=== PATIENT | male | born 1995 | race Caucasian/White ===

== ENCOUNTER 2016-05-29 11:19 | Emergency (ER) | payer SELFPAY ==
[~2016-05-29] VITALS: Ht 160 cm; Wt 49.9 kg
[2016-05-29 11:20] VITALS: BP 127/80; PULSE 80; RESP 20; TEMP 97.6; O2SAT 99
--- NOTE | 2016-05-29 11:20 | NUR ---
Arrived in custody of [facility] with compliant of anxiety this morning. States that he feels it is improving though he has had anxiety twice this morning. Patient to ER [id number] 1 to gown for evaluation. Side rails up. Assumed care of patient.
--- NOTE | 2016-05-29 11:22 | NUR ---
ER Dr. Parker at bedside examining patient.
[2016-05-29] MEDS ORDERED: ALPRAZolam 0.25 MG TABLET PO ONE (11:30)
--- NOTE | 2016-05-29 11:58 | NUR ---
Patient given written and verbal discharge instructions and verbalizes understanding. ER MD discussed with patient the results and treatment provided. Given copies of tests performed in ER. Patient in stable condition. ID arm band removed. No Rx given. Patient educated on pain management and to follow up with PMD. Pain Scale 0/10. Patient is drowsy and feels more relaxed. Opportunity for questions provided and answered.
== END 2016-05-29 12:01 | disposition home or self-care (01) ==
LOC: SED 11:19
DX: F41.9 Anxiety disorder, unspecified (principal)
CPT/HCPCS: 99283